=== PATIENT | female | born 1990 | race Two or more races ===

== ENCOUNTER 2016-03-30 10:18 | Emergency (ER) | payer OTHER ==
[2016-03-30 10:26] VITALS: TEMP 98; BMI 35.2
--- NOTE | 2016-03-30 10:52 | PDOC ---
History of Present Illness - General History Source: Patient Exam Limitations: No Limitations - History of Present Illness Initial Comments: Patient is a 26 year old obese femalewith PMH of PCOS (untreated) and migraine headaches who presents to ED with headache for 1-2 days. She states she developed a right sided sharp headache early yesterday. She gets migraines like these about once per month. She took 6 Tylenol yesterday without much help. She normally takes upwards of 10 tylenol when she has a headache like this but felt abdominal discomfort so she decided to stop taking tylenol and just come to the ED. She describes associated aura including photophobia, dark sports and intermittent mild dizziness. She also has mild nausea. Denies any fever, chills , vomiting, diarrhea, constipation, SOB, chest pain or palpitations. <Kit Nunez - Last Filed: 03/30/16 12:50> <Daniella Ramirez - Last Filed: 03/30/16 15:53> - General Chief Complaint: Headache Stated Complaint: CHEST PAIN, HEADACHES Time Seen by Provider: 03/30/16 10:36 Past History - Travel Traveled outside of the country in the last 30 days: No Close contact w/someone who was outside of country & ill: No - Past Medical History Other medical history: MIGRAINES - Family Disease History Family Disease History: Other: Mother (Migraine headaches), Brother (Migraine headaches) - Immunization History Immunization Up to Date: Yes - Psycho/Social/Smoking Cessation Hx Anxiety: No Suicidal Ideation: No Smoking Status: No Smoking History: Never smoked Have you smoked in the past 12 months: No Information on smoking cessation initiated: No Hx Alcohol Use: No Drug/Substance Use Hx: No Substance Use Type: None <Kit Nunez - Last Filed: 03/30/16 12:50> <Daniella Ramirez - Last Filed: 03/30/16 15:53> - Past Medical History Allergies/Adverse Reactions: Allergies Allergy/AdvReac Type Severity Reaction Status Date / Time No Known Allergies Allergy Verified 03/30/16 10:23 Home Medications: Ambulatory Orders Aspirin/Acetaminophen/Caffeine [Excedrin Migraine Caplet] 1 each PO PRN Review of Systems - Review of Systems Able to Perform ROS?: Yes Is the patient limited Senegalese proficient: No HEENTM: Yes: Blurred Vision (intermittent) ABD/GI: Yes: Nausea Neurological: Yes: Headache <Mayra,Issa - Last Filed: 03/30/16 12:50> *Physical Exam - Vital Signs Last Vital Signs Temp Pulse Resp BP Pulse Ox 98.0 F 88 18 129/83 100 03/30/16 10:23 03/30/16 10:23 03/30/16 10:23 03/30/16 10:23 03/30/16 10:23 - Physical Exam General Appearance: Yes: Appropriately Dressed, Apparent Distress, Obese HEENT: positive: EOMI, ASHLEY, Normal ENT Inspection, Other (Photophobia) Neck: positive: Trachea midline, Normal Thyroid, Supple Respiratory/Chest: positive: Lungs Clear, Normal Breath Sounds Cardiovascular: positive: Regular Rhythm, Regular Rate, S1, S2 Gastrointestinal/Abdominal: positive: Normal Bowel Sounds, Soft Musculoskeletal: positive: Normal Inspection Extremity: positive: Normal Inspection, Normal Range of Motion Integumentary: positive: Normal Color, Dry, Warm Neurologic: positive: donor services coordinator II-XII NML intact, Fully Oriented, Alert, Normal Mood/ Affect, Motor Strength 5/5 <MayraKit - Last Filed: 03/30/16 12:50> - Vital Signs Last Vital Signs Temp Pulse Resp BP Pulse Ox 98.0 F 75 16 110/61 99 03/30/16 10:23 03/30/16 13:25 03/30/16 13:25 03/30/16 13:25 03/30/16 13:25 <Daniella Ramirez - Last Filed: 03/30/16 15:53> Heart Score/ECG Review - ECG Impressions Normal ECG: Yes <MayraKit - Last Filed: 03/30/16 12:50> - ECG Impressions Comment:: EKG read 10:27- NSR 73 bpm, no acute ST/T changes <Daniella Ramirez - Last Filed: 03/30/16 15:53> ED Treatment Course - LABORATORY CBC & Chemistry Diagram: 03/30/16 10:36 03/30/16 10:36 - ADDITIONAL ORDERS Additional order review: 03/30/16 11:28 Ordered test, CMP, CBC & Acetaminophen level. Started Reglan and will start Toradol once test returns negative. 03/30/16 12:50 Patient states she feels much better. She does not want Toradol as she says her headache is resolved with just the IVF and Reglan. Instructed to f/u with PMD for long-term management. Explained dangers of taking tylenol at such high doses and patient acknowledges understanding. <Kit Nunez - Last Filed: 03/30/16 12:50> - LABORATORY CBC & Chemistry Diagram: 03/30/16 10:36 03/30/16 10:36 - ADDITIONAL ORDERS Additional order review: Laboratory Results 03/30/16 03/30/16 03/30/16 10:36 10:36 10:36 Sodium 140 Potassium 4.2 Chloride 104 Carbon Dioxide 29 Anion Gap 7 L BUN 11 D Creatinine 0.7 Creat Clearance w eGFR > 60 Random Glucose 76 Calcium 9.2 Total Bilirubin 0.3 AST 16 ALT 22 D Alkaline Phosphatase 97 Total Protein 7.3 Albumin 3.8 Urine HCG, Qual Negative Acetaminophen < 2 L 03/30/16 10:36 RBC 5.23 H MCV 80.0 MCHC 32.4 RDW 13.6 MPV 7.0 L Neutrophils % 66.9 Lymphocytes % 23.6 D Monocytes % 7.9 Eosinophils % 1.0 Basophils % 0.6 - Medications Given in the ED: ED Medications Discontinued Medications Generic Name Dose Route Start Last Admin Trade Name Lavonne PRN Reason Stop Dose Admin Sodium Chloride 500 mls @ 500 mls/hr 03/30/16 11:41 03/30/16 12:45 Normal Saline - IV 03/30/16 12:40 500 mls/hr ASDIR STA Administration Ketorolac Tromethamine 30 mg 03/30/16 12:20 03/30/16 13:00 Toradol Injection - IVPUSH 03/30/16 12:21 Not Given ONCE ONE Metoclopramide HCl 10 mg 03/30/16 10:57 03/30/16 11:16 Reglan Injection - IVPB 03/30/16 10:58 10 mg ONCE ONE Administration <Daniella Ramirez - Last Filed: 03/30/16 15:53> *DC/Admit/Observation/Transfer - Discharge Dispostion Admit: No <Kit Nunez - Last Filed: 03/30/16 12:50> <Daniella Ramirez - Last Filed: 03/30/16 15:53> Diagnosis at time of Disposition: Migraine headache with aura - Discharge Dispostion Disposition: HOME Condition at time of disposition: Improved - Referrals Referrals: Olivia Hunt [Primary Care Provider] - - Patient Instructions Additional Instructions: Drink plenty of fluids to avoid headaches due to dehydration.See your primary doctor soon so he can help you with long-term management of your headaches and prevention.
[2016-03-30] MEDS ORDERED: METOCLOPRAMIDE HCL INJECTION 10 MG/2 ML VIAL IVPB ONE (10:57)
[2016-03-30] MEDS ORDERED: METOCLOPRAMIDE HCL INJECTION 10 MG/2 ML VIAL ONE (11:12)
--- NOTE | 2016-03-30 11:18 | PDOC ---
Attending Attestation - Resident Resident Name: Kit Nunez - ED Attending Attestation I have performed the following: I have examined & evaluated the patient, The case was reviewed & discussed with the resident, I agree w/resident's findings & plan, Exceptions are as noted - HPI HPI: 26 yo F history migraine headaches p/w R sided sharp headache typical of prior migraines. She has been taking excedrin migraine without relief. She endorses nausea, photophobia, phonophobia. She presented for evaluation because the excedrin did not help. Denies weakness, numbness. - Physicial Exam PE: GENERAL: Awake, alert, and fully oriented, in no acute distress HEAD: No signs of trauma EYES: PERRLA, EOMI, sclera anicteric, conjunctiva clear. +Photosensitivity. ENT: Auricles normal inspection, hearing grossly normal, nares patent, oropharynx clear without exudates. Moist mucosa NECK: Normal ROM, supple, no lymphadenopathy, JVD, or masses LUNGS: Breath sounds equal, clear to auscultation bilaterally. No wheezes, and no crackles HEART: Regular rate and rhythm, normal S1 and S2, no murmurs, rubs or gallops ABDOMEN: Soft, nontender, normoactive bowel sounds. No guarding, no rebound. No masses EXTREMITIES: Normal range of motion, no edema. No clubbing or cyanosis. No cords, erythema, or tenderness NEUROLOGICAL: Cranial nerves II through XII grossly intact. Normal speech, normal gait SKIN: Warm, Dry, normal turgor, no rashes or lesions noted. - Medical Decision Making No acute neuro findings. Will obtain basic labs and tylenol level. Will treat with toradol, reglan, and IVF and reassess.
[2016-03-30] MEDS ORDERED: SODIUM CHLORIDE 500 ML IV STA (11:41)
[2016-03-30 11:54] LABS: BASOPHIL 0.6 % (0-2.0); MCH 25.9 pg (25.7-33.7); MCHC 32.4 g/dl (32.0-36.0); NEUTROPHILS 66.9 % (42.8-82.8); PLATELET COUNT 406 K/MM3 (134-434); RDW 13.6 % (11.6-15.6); WHITE BLOOD COUNT 8.8 K/mm3 (4.0-10.0)
[2016-03-30] MEDS ORDERED: KETOROLAC TROMETHAMINE 30 MG/1 ML VIAL IVPUSH ONE (12:20)
[2016-03-30 12:21] LABS: ALBUMIN 3.8 g/dl (3.4-5.0); ALK PHOS 97 U/L (45-117); ANION GAP 7 (8-16); BILIRUBIN,TOTAL 0.3 mg/dL (0.2-1.0); CALCIUM 9.2 mg/dL (8.5-10.1); CO2 29 mmol/L (21-32); CREATININE 0.7 mg/dL (0.55-1.02); GLUCOSE,RANDOM 76 mg/dL (74-106); SGOT/AST 16 U/L (15-37); SGPT/ALT 22 U/L (12-78); TOT PROT 7.3 g/dl (6.4-8.2)
[2016-03-30 13:47] VITALS: BP 110/61; PULSE 75
--- NOTE | 2016-03-31 16:33 | EKG ---
Test Reason : Blood Pressure : / mmHG Vent. Rate : 073 BPM Atrial Rate : 073 BPM P-R Int : 170 ms QRS Dur : 084 ms QT Int : 364 ms P-R-T Axes : 053 -07 027 degrees QTc Int : 401 ms NORMAL SINUS RHYTHM NORMAL ECG NO PREVIOUS ECGS AVAILABLE Confirmed by LAURA VAZQUEZ MD ([id number]) on 03/31/2016 4:33:22 PM Referred By: Confirmed By:LAURA VAZQUEZ MD
== END 2016-03-30 13:30 | disposition home or self-care (01) ==
LOC: JER 10:18
PROC: 3E0337Z Introduction of Electrolytic and Water Balance Substance into Peripheral Vein, Percutaneous Approach (ICD-10-PCS; principal; 2016-03-30)
PROC: 3E033GC Introduction of Other Therapeutic Substance into Peripheral Vein, Percutaneous Approach (ICD-10-PCS; 2016-03-30)
DX: G43.109 Migraine with aura, not intractable, without status migrainosus (principal)
CPT/HCPCS: 36415; 80053; 80307; 84703; 85025; 93005; 93010; 96361; 96374; 99282-25

== ENCOUNTER 2017-01-07 10:45 | Emergency (ER) | payer OTHER ==
[2017-01-07 11:06] VITALS: BP 129/61; PULSE 84; TEMP 98.1; BMI 34.3
== END 2017-01-07 13:45 | disposition left against medical advice (07) ==
LOC: JERFT 10:45 → JER 10:45 → JERFT 13:45
DX: Z53.21 Procedure and treatment not carried out due to patient leaving prior to being seen by health care provider (principal)
CPT/HCPCS: 99281-25

== ENCOUNTER 2018-08-02 12:04 | Emergency (ER) | payer BC, OTHER ==
[2018-08-02 12:15] VITALS: BP 138/61; PULSE 82; TEMP 97.8; BMI 35.2
[2018-08-02] MEDS ORDERED: KETOROLAC TROMETHAMINE 30 MG/1 ML VIAL IM ONE (14:08)
[2018-08-02] MEDS ORDERED: CYCLOBENZAPRINE HCL 10 MG TABLET (FP) PO ONE (14:08)
--- NOTE | 2018-08-02 14:09 | PDOC ---
History of Present Illness - General Chief Complaint: Pain Stated Complaint: LT. LEG PAIN/ LOWER BACK PAIN Time Seen by Provider: 08/02/18 13:51 History Source: Patient Exam Limitations: No Limitations - History of Present Illness Initial Comments: 08/02/18 14:14 28 year old female with history of migraine, presents for lower back pain x 2 weeks. Patient reports pain in lower back with radiation into left buttocks and down left leg. Denies numbness or tingling in lower limb. States no heavy lifting. Takes advil with no relief of symptoms Occurred: reports: other (2 weeks ) Severity: reports: moderate Pain Location: reports: back Method of Injury: Yes: other (no injury ) Modifying Factors: improves with: immobilization, pain medication Loss of Consciousness: no loss of consciousness Associated Symptoms (Fall): muscle spasms, trouble walking Past History - Travel Traveled outside of the country in the last 30 days: No Close contact w/someone who was outside of country & ill: No - Past Medical History Allergies/Adverse Reactions: Allergies Allergy/AdvReac Type Severity Reaction Status Date / Time No Known Allergies Allergy Verified 08/02/18 12:16 Home Medications: Ambulatory Orders Methylprednisolone [Medrol Dose Juan] 4 mg PO ASDIR #21 tablet 08/02/18 Naproxen 500 mg PO BID #20 tablet. 08/02/18 COPD: No - Family Disease History Family Disease History: Other: Mother (Migraine headaches), Brother (Migraine headaches) - Immunization History Immunization Up to Date: Yes - Suicide/Smoking/Psychosocial Hx Smoking Status: No Smoking History: Never smoked Have you smoked in the past 12 months: No Information on smoking cessation initiated: No Hx Alcohol Use: No Drug/Substance Use Hx: No Substance Use Type: None Trauma Specific PMHX - Complaint Specific PMHX Arthritis: No Back Injury: No Neck Injury: No Hx Sacro Iliac Joint Dysfunction: No Review of Systems - Review of Systems Able to Perform ROS?: Yes Is the patient limited Tanzanian proficient: No Constitutional: No: Chills, Fever HEENTM: No: Nose Congestion, Hearing Loss, Throat Swelling Respiratory: No: Orthopnea, Shortness of Breath, Wheezing, Productive cough Cardiac (ROS): No: Chest Pain, Lightheadedness, Palpitations : No: Burning, Incontinence Musculoskeletal: No: Joint Pain, Muscle Pain, Muscle Weakness Integumentary: No: Dryness, Erythema, Flushing Neurological: No: Numbness, Paresthesia *Physical Exam - Vital Signs Last Vital Signs Temp Pulse Resp BP Pulse Ox 97.8 F 82 18 138/61 99 08/02/18 12:13 08/02/18 12:13 08/02/18 12:13 08/02/18 12:13 08/02/18 12:13 - Physical Exam General Appearance: Yes: Nourished, Appropriately Dressed HEENT: positive: ASHLEY, Pharynx Normal Neck: positive: Supple. negative: Lymphadenopathy (R), Lymphadenopathy (L) Respiratory/Chest: positive: Lungs Clear, Normal Breath Sounds Cardiovascular: positive: Regular Rhythm, Regular Rate Musculoskeletal: positive: Normal Inspection. negative: CVA Tenderness Extremity: positive: Normal Capillary Refill Neurologic: positive: Fully Oriented, Alert Medical Decision Making - Medical Decision Making 08/02/18 14:18 28 year old female with history of migraine, presents for lower back pain x 2 weeks. lower back pain urine test analgesia ordered 08/02/18 15:12 -pain is better but states still present -negative urine preg -d/c referred to ortho for further evaluation of back pain *DC/Admit/Observation/Transfer Diagnosis at time of Disposition: Lower back pain Qualifiers: Chronicity: acute Back pain laterality: left Sciatica presence: with sciatica Sciatica laterality: sciatica of left side Qualified Code(s): M54.42 - Lumbago with sciatica, left side - Discharge Dispostion Disposition: HOME Condition at time of disposition: Good Decision to Admit order: No - Prescriptions Prescriptions: Methylprednisolone [Medrol Dose Juan] 4 mg PO ASDIR #21 tablet Naproxen 500 mg PO BID #20 tablet.dr - Referrals Referrals: Victor Hugo Smith MD [Staff Physician] - - Patient Instructions Additional Instructions: Please call orthopedics for further evaluation of back pain Call primary physician for follow up appointment Take medication as prescribed until completed. Activity as tolerated and exercises as directed - Post Discharge Activity Forms/Work/School Notes: Back to Work
[2018-08-02] MEDS ORDERED: KETOROLAC TROMETHAMINE 30 MG/1 ML VIAL ONE (14:53)
[2018-08-02] MEDS ORDERED: CYCLOBENZAPRINE HCL 10 MG TABLET (FP) ONE (14:53)
== END 2018-08-02 15:30 | disposition home or self-care (01) ==
LOC: JERFT 12:04
PROC: 3E0233Z Introduction of Anti-inflammatory into Muscle, Percutaneous Approach (ICD-10-PCS; principal; 2018-08-02)
DX: M54.42 Lumbago with sciatica, left side (principal)
CPT/HCPCS: 84703; 99281-25